=== PATIENT | male | born 2000 | race African-American/Black ===

== ENCOUNTER 2019-06-14 23:58 | Emergency (ER) | payer SELFPAY ==
[~2019-06-14] VITALS: Ht 193 cm; Wt 81.5 kg
[2019-06-15] MEDS ORDERED: SODIUM CHLORIDE 0.9% 1,000 ML IV ONE ×2 (01:43→04:30)
[2019-06-15] MEDS ORDERED: KETOROLAC 30MG/ML VIAL IV STA (01:43)
[2019-06-15] MEDS ORDERED: FAMOTIDINE 20MG/2ML VIAL IV ONE (01:45)
[2019-06-15] MEDS ORDERED: ONDANSETRON HCL 4MG/2ML INJ IV ONE (01:45)
[2019-06-15 02:12] LABS: HEMOGLOBIN. 18.2 g/dL (14.0-18.0); MEAN CORPUSCULAR HEMOGLOBIN 31.5 pg (28.0-32.0); PLATELET 135 x1000/uL (130-400); RED BLOOD CELL COUNT 5.78 mill/uL (4.7-6.1); RED CELL DISTRIBUTION WIDTH 12.9 % (11.6-14.6)
[2019-06-15 02:13] LABS: CHLORIDE 96 mEq/L (98-107)
[2019-06-15] MEDS ORDERED: POTASSIUM CHLORIDE 20MEQ TABLET SR PO SCH (02:30)
[2019-06-15] MEDS ORDERED: KCL 10MEQ/50ML PREMIX 50 ML IV SCH (02:30)
[2019-06-15 02:34] LABS: CLARITY URINE CLEAR (CLEAR); COLOR URINE DARK YELLOW (YELLOW); KETONES URINE 3+ (NEGATIVE); LEUKOCYTE ESTERASE URINE TRACE (NEGATIVE); NITRITE URINE NEGATIVE (NEGATIVE); OCCULT BLOOD URINE NEGATIVE (NEGATIVE); PH URINE 6.5 (4.5-8.0); PROTEIN URINE 3+ (NEGATIVE)
[2019-06-15] MEDS ORDERED: IOHEXOL-300 100 ML BOTTLE ONE (03:12)
[2019-06-15 03:58] LABS: PLATELET ESTIMATE NORMAL
[2019-06-15 04:55] LABS: CHLORIDE 100 mEq/L (98-107)
[2019-06-15 05:58] VITALS: BP 125/80
== END 2019-06-15 06:10 | disposition home or self-care (01) ==
LOC: ER 23:58
DX: K52.9 Noninfective gastroenteritis and colitis, unspecified (principal); E87.6 Hypokalemia; R19.7 Diarrhea, unspecified; R10.84 Generalized abdominal pain; R11.0 Nausea; F12.10 Cannabis abuse, uncomplicated; M79.10 Myalgia, unspecified site
CPT/HCPCS: 36415; 74177; 80048; 80053; 81003; 83690; 85025; 96361; 96365; 96375; 99284; J1885; J2405; J3480; J3490; J7030; Q9967